=== PATIENT | female | born 1970 | race Caucasian/White ===

== ENCOUNTER 2018-06-27 16:14 | Emergency (ER) | payer OTHER ==
[2018-06-27 16:32] VITALS: BP 126/72; PULSE 87; TEMP 99.5; BMI 21.9
[2018-06-27] MEDS ORDERED: KETOROLAC TROMETHAMINE 60 MG/2 ML VIAL IM ONE (16:57)
[2018-06-27] MEDS ORDERED: KETOROLAC TROMETHAMINE 60 MG/2 ML VIAL ONE (17:01)
--- NOTE | 2018-06-27 17:03 | PDOC ---
History of Present Illness - General Chief Complaint: Pain Stated Complaint: RIGHT ARM PAIN Time Seen by Provider: 06/27/18 16:39 History Source: Patient, Parent(s) Exam Limitations: No Limitations - History of Present Illness Initial Comments: 06/27/18 17:00 Patient here with complaints of significant and severe right arm shoulder and elbow pain. 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 Has been seen by her PMD and given multiple medications including cyclobenzaprine, ibuprofen, valacyclovir yesterday but states is much worse and medications not yet helped . Eyes fever, any URI symptoms. Denies any specific injury or trauma. Suffers from painful hands and left shoulder pain as well but right arm is significantly worse. Occurred: reports: last week Severity: reports: moderate, severe Pain Location: reports: upper extremity Method of Injury: Yes: unknown Modifying Factors: improves with: None Loss of Consciousness: no loss of consciousness Associated Symptoms (Fall): denies symptoms Past History - Travel Traveled outside of the country in the last 30 days: No Close contact w/someone who was outside of country & ill: No - Past Medical History Allergies/Adverse Reactions: Allergies Allergy/AdvReac Type Severity Reaction Status Date / Time No Known Allergies Allergy Verified 06/27/18 16:32 Home Medications: Ambulatory Orders predniSONE [Deltasone -] 20 mg PO BID #10 tablet 06/27/18 COPD: No - Suicide/Smoking/Psychosocial Hx Smoking History: Never smoked Hx Alcohol Use: No Drug/Substance Use Hx: No Substance Use Type: None Review of Systems - Review of Systems Able to Perform ROS?: Yes Is the patient limited Polish proficient: Yes Constitutional: Yes: Symptoms Reported, See HPI, Malaise. No: Chills, Fever, Loss of Appetite HEENTM: No: Symptoms Reported Respiratory: No: Symptoms reported Musculoskeletal: Yes: Symptoms Reported, See HPI, Joint Pain, Muscle Pain Integumentary: Yes: See HPI. No: Symptoms Reported, Bruising Neurological: Yes: Symptoms reported, See HPI All Other Systems: Reviewed and Negative *Physical Exam - Vital Signs Last Vital Signs Temp Pulse Resp BP Pulse Ox 99.5 F 87 18 126/72 99 06/27/18 16:30 06/27/18 16:30 06/27/18 16:30 06/27/18 16:30 06/27/18 16:30 - Physical Exam General Appearance: Yes: Nourished, Appropriately Dressed, Apparent Distress, Moderate Distress HEENT: positive: ELSA, Normal ENT Inspection, TMs Normal, Pharynx Normal Neck: positive: Supple. negative: Tender Respiratory/Chest: positive: Lungs Clear Gastrointestinal/Abdominal: positive: Soft. negative: Normal Bowel Sounds Rectal Exam: negative: heme negative stool Musculoskeletal: positive: Normal Inspection, Decreased Range of Motion. negative: Vertebral Tenderness Extremity: positive: Normal Capillary Refill. negative: Normal Range of Motion (patient with mild swelling and tenderness to the medial and lateral aspect of right elbow/epicondyles. Unable to supinate and pronate secondary to swelling and pain. Pain radiates up to shoulder joint. Inpatient unwilling to be examined or exhibit range of motion.Neurovascular intact to hand and able to squeeze fingers.) Integumentary: positive: Normal Color, Dry, Warm. 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 We'll treat with NSAIDs and steroids and have follow-up with orthopedist *DC/Admit/Observation/Transfer Diagnosis at time of Disposition: Epicondylitis syndrome of elbow - Discharge Dispostion Disposition: HOME Condition at time of disposition: Stable Decision to Admit order: No - Prescriptions Prescriptions: predniSONE [Deltasone -] 20 mg PO BID #10 tablet - Referrals Referrals: Anderson Perez MD [Staff Physician] - - Patient Instructions Printed Discharge Instructions: DI for Tendinitis Additional Instructions: Rest, ice to area on and off for 15 minutes 4-6 times a day Avoid heavy lifting or exercise until pain and swelling is resolved or until further directed Keep area highly elevated to reduce swelling Followup with orthopedist in one to 2 days if not improving, if significantly improved may wait one week for followup with orthopedist May consider physical therapy to help assist relieve symptoms May use ibuprofen 400 mg tablets every 6 hours as needed for pain Prednisone 20 mg twice a day for 5 days No need to take valacyclovir - Post Discharge Activity Forms/Work/School Notes: Back to Work
== END 2018-06-27 18:36 | disposition home or self-care (01) ==
LOC: JERFT 16:14
PROC: 3E0233Z Introduction of Anti-inflammatory into Muscle, Percutaneous Approach (ICD-10-PCS; principal; 2018-06-27)
DX: M77.11 Lateral epicondylitis, right elbow (principal); M77.01 Medial epicondylitis, right elbow; M75.31 Calcific tendinitis of right shoulder
CPT/HCPCS: 73060-TC-RT-FY; 96372; 99281-25